=== PATIENT | female | born 1975 | race Caucasian/White ===

== ENCOUNTER → 2022-01-03 00:01 | Outpatient (BNVA) | payer MEDICAID, SELFPAY | PROVIDERS: PCP Nurse Practitioner Family; Visit Provider Internal Medicine | DX: Z20.822 Contact with and (suspected) exposure to COVID-19 (principal) | CPT/HCPCS: 87635 ==

== ENCOUNTER 2022-01-07 06:12 | Day surgery (SDC) | payer MEDICAID, SELFPAY ==
[2022-01-02 14:32] VITALS: BMI 41.0
[2022-01-07 06:58] VITALS: BP 142/83; PULSE 60; RESP 18; TEMP 36.5; O2SAT 98
--- NOTE | 2022-01-07 07:03 | ANES.PREANE2 ---
Pre-Anesthetic Assessment Height/Weight: Height 1.73 m Weight 122.47 kg Temp Pulse Resp BP Pulse Ox 97.7 F 60 18 142/83 98 01/07/22 06:58 01/07/22 06:58 01/07/22 06:58 01/07/22 06:58 01/07/22 06:58 Preop Diagnosis: Heartburn and screening Operation Date: 01/07/22 07:45 Proposed Procedures p EGD [id number]/z12.11(Not Applicable) - Bart Loomis MD s Colonoscopy(Not Applicable) - Bart Loomis MD Was Beta Kristian taken within 24 hours: N/A Was Clonidine taken within 24 hours: N/A Last intake: Intake Last Liquid Date 01/06/22 Last Liquid Time 19:00 Last Solid Date 01/05/22 Last Solid Time 18:00 Social No alcohol and No tobacco Exam alert and oriented x 3 Airway Submandibular: within normal limits Cervical ROM: within normal limits Mallampati: Class II Dentition: false History/ROS No significant history except as noted Pulmonary Asthma (no epipsodes in >1yr) CV/HEM None reported None reported Hepatic None reported GI Gastroesophageal Reflux Disease Metabolic Morbid Obesity Musc/sk None reported Neuropsych None reported Anesthetic Plan ASA status: 3 Anesthesia: Anesthesia Evaluation and MAC Risk of > 500 ml blood loss (7ml/kg in children): No Medications/Allergies Home Medications Medication Instructions Recorded Confirmed Last Taken Type albuterol sulfate 90 mcg/actuation 2 puff INHALATION Q6H PRN 11/08/21 01/02/22 Unknown History aerosol inhaler (ProAir HFA) calcium carbonate 500 mg calcium 500 mg PO BID 11/08/21 01/02/22 01/06/22 History (1,250 mg) tablet (Calcium 500) cetirizine 10 mg capsule (Zyrtec) 10 mg PO DAILY PRN 11/08/21 01/02/22 01/06/22 History cholecalciferol (vitamin D3) 10 10 mcg PO DAILY 11/08/21 01/02/22 01/06/22 History mcg (400 unit) capsule ferrous sulfate 325 mg (65 mg 325 mg PO DAILY 11/08/21 01/02/22 01/06/22 History iron) tablet fluticasone propionate 50 1 spray INTRANASAL DAILY 11/08/21 01/02/2222 History mcg/actuation nasal spray,suspension (Flonase Allergy Relief) furosemide 20 mg tablet 20 mg PO DAILY 30 Days #30 tab 11/08/21 01/02/22 01/06/22 Rx magnesium oxide 400 mg PO BID 11/08/21 01/02/22 01/06/22 History meloxicam 15 mg tablet 15 mg PO DAILY 30 Days #30 tab 11/08/21 01/02/22 01/06/22 Rx omeprazole 20 mg capsule,delayed 20 mg PO DAILY 11/08/21 01/02/22 01/06/22 History release venlafaxine 37.5 mg tablet 37.5 mg PO BID tab 11/08/21 01/02/22 01/06/22 History zinc 50 mg tablet 50 mg PO BID 11/08/21 01/02/22 01/06/22 History meclizine 25 mg tablet 25 mg PO BID #60 tab 12/17/21 01/02/22 01/06/22 Rx lovastatin 40 mg tablet 40 mg PO DAILY #30 tab 01/03/22 01/07/22 01/06/22 Rx acetaminophen 500 mg tablet 500 mg PO Q6H PRN 01/07/22 01/07/22 01/03/22 History Allergies Allergy/AdvReac Type Severity Reaction Status Date / Time adhesive tape Allergy Intermediate rash Verified 01/02/22 14:21 PFSH Anesthesia Medical History Breast cancer screening by mammogram Colon cancer screening Edema Environmental and seasonal allergies Former smoker GERD (gastroesophageal reflux disease) History of HPV infection History of stomach ulcers Migraine with vertigo Osteoarthritis Vertigo Vitamin D deficiency Surgical History H/O hand surgery 1996 tendon repair 3rd finger right hand S/P section 3 1999, 2002, 2004 S/P wisdom tooth extraction 1992 All 4 wisdom teeth removed Social History Smoking and tobacco status: former smoker Female Reproductive History Date of last menstrual period: 01/02/22 Data Anesthesia Cardiac Studies: No Data to Display
[2022-01-07 07:10] LABS: OR HCG Qualitative Urine Negative (Negative)
[2022-01-07] MEDS: sodium chloride 0.9% 1,000 ML 30 ML IV (07:11)
--- NOTE | 2022-01-07 08:00 | P.HP_ITS ---
Same Day Surgery H&P Indication for Procedure/HPI DATE OF PROCEDURE: January 07, 2022 CHIEF COMPLAINT/INDICATIONFOR SURGICAL PROCEDURE: Frequent heartburn and screening PREOP DIAGNOSIS: Heartburn and screening PLANNED PROCEDURE: Operation Date: 01/07/22 07:45 Proposed Procedures p EGD [id number]/[id number]/z12.11(Not Applicable) - Bart Loomis MD s Colonoscopy(Not Applicable) - Bart Loomis MD Medications/Allergies* Home Medications Medication Instructions Recorded Confirmed Type albuterol sulfate 90 mcg/actuation 2 puff INHALATION Q6H PRN 11/08/21 01/02/22 History aerosol inhaler (ProAir HFA) calcium carbonate 500 mg calcium 500 mg PO BID 11/08/21 01/02/22 History (1,250 mg) tablet (Calcium 500) cetirizine 10 mg capsule (Zyrtec) 10 mg PO DAILY PRN 11/08/21 01/02/22 History cholecalciferol (vitamin D3) 10 10 mcg PO DAILY 11/08/21 01/02/22 History mcg (400 unit) capsule ferrous sulfate 325 mg (65 mg 325 mg PO DAILY 11/08/21 01/02/22 History iron) tablet fluticasone propionate 50 1 spray INTRANASAL DAILY 11/08/21 01/02/22 History mcg/actuation nasal spray,suspension (Flonase Allergy Relief) magnesium oxide 400 mg PO BID 11/08/21 01/02/22 History omeprazole 20 mg capsule,delayed 20 mg PO DAILY 11/08/21 01/02/22 History release venlafaxine 37.5 mg tablet 37.5 mg PO BID tab 11/08/21 01/02/22 History zinc 50 mg tablet 50 mg PO BID 11/08/21 01/02/22 History acetaminophen 500 mg tablet 500 mg PO Q6H PRN 01/07/22 01/07/22 History Allergies/Adverse Reactions Allergy/AdvReac Type Severity Reaction Status Date / Time adhesive tape Allergy Intermediate rash Verified 01/02/22 14:21 Current Medications: Generic Name Dose Route Start Last Admin Trade Name Freq PRN Reason Stop Dose Admin Sodium Chloride 1,000 mls @ 30 mls/hr 01/07/22 07:00 01/07/22 07:11 Sodium Chloride 0.9% IV 01/08/22 06:59 30 mls/hr .Q24H OPAL Administration Pertinent History/Comorbid Conditions* Medical History (Updated 12/03/21 @ 14:50 by Bart Loomis MD) Breast cancer screening by mammogram Colon cancer screening Edema Environmental and seasonal allergies Former smoker GERD (gastroesophageal reflux disease) History of HPV infection History of stomach ulcers Migraine with vertigo Osteoarthritis Vertigo Vitamin D deficiency Surgical History (Updated 11/08/21 @ 11:27 by TANIKA Snow) H/O hand surgery 1996 tendon repair 3rd finger right hand S/P section 3 1999, 2002, 2004 S/P wisdom tooth extraction 1992 All 4 wisdom teeth removed Social History Smoking and tobacco status: former smoker Pertinent Exam Findings alert, oriented x 3, clear to auscultation bilaterally, regular rate & rhythm, operative site marked and procedure specific exam findings Recommendations Surgery/Procedure today Coding Level of Care Code 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
[2022-01-07 08:44] VITALS: BP 122/86; PULSE 65; RESP 16; TEMP 36.2; O2SAT 97
[2022-01-07 08:55] VITALS: BP 155/89; PULSE 59; RESP 16; O2SAT 98
--- NOTE | 2022-01-07 11:53 | ANE.PACU2 ---
Inpatient post-anesthesia follow up: Airway intact: Yes Vital signs: Temperature 97.2 F Pulse Rate 59 Respiratory Rate 16 Blood Pressure 155/89 Pulse Oximetry 98 Oxygen Delivery Me thod Room Air Oxygen Flow Rate Fraction of Inspir ed Oxygen Hydration adequate: Yes Nausea and vomiting: No Pain level: 1 Mental status: Baseline
[2022-01-08 09:21] LABS: H. Pylori / CLO Test Negative
== END 2022-01-07 09:15 | disposition home or self-care (01) ==
PROVIDERS: Anesthesiology; PCP Nurse Practitioner Family; Visit Provider Internal Medicine
PROC: 0DJ08ZZ Inspection of Upper Intestinal Tract, Via Natural or Artificial Opening Endoscopic (ICD-10-PCS; CPT 43235; principal; 2022-01-07 07:45)
PROC: 0DJD8ZZ Inspection of Lower Intestinal Tract, Via Natural or Artificial Opening Endoscopic (ICD-10-PCS; CPT 45378; 2022-01-07 07:45)
DX: Z12.11 Encounter for screening for malignant neoplasm of colon (principal); K29.70 Gastritis, unspecified, without bleeding; Z87.891 Personal history of nicotine dependence; M19.90 Unspecified osteoarthritis, unspecified site; E66.01 Morbid (severe) obesity due to excess calories; Z68.41 Body mass index [BMI] 40.0-44.9, adult
CPT/HCPCS: 43239; 45378; 81025; 84703; 87077; J2704; J3490; J7030

== ENCOUNTER → 2022-02-21 09:27 | Outpatient (BNVA) | payer MEDICAID, SELFPAY | PROVIDERS: PCP Nurse Practitioner Family; Visit Provider Nurse Practitioner | DX: G43.109 Migraine with aura, not intractable, without status migrainosus (principal); M19.09 Primary osteoarthritis, other specified site; Z79.899 Other long term (current) drug therapy | CPT/HCPCS: 80053; 84443 ==

== ENCOUNTER 2022-04-04 09:44 | Outpatient (CLI) | payer MEDICAID, SELFPAY ==
--- NOTE | 2022-04-04 09:51 | MM_ITS ---
WS: [id number] SCREENING DIGITAL BREAST TOMOSYNTHESIS MAMMOGRAM WITH CAD HISTORY: SCREENING COMPARISON: None available. Bilateral CC and MLO with tomosynthesis views submitted. Synthetic mammography reviewed. Computer aid ed detection analyzed. Breast composition: There are scattered areas of fibroglandular density. No suspicious masses, microc alcifications or architectural distortion. MM/[place] [id number] IMPRESSION: BI-RADS: 1-Negative FOLLOW UP: 1 Year Follow-up
== END 2022-04-04 09:45 | disposition home or self-care (01) ==
LOC: RADSHAW 09:47
PROVIDERS: PCP Nurse Practitioner; Visit Provider Nurse Practitioner
DX: Z12.31 Encounter for screening mammogram for malignant neoplasm of breast (principal)
CPT/HCPCS: 77063; 77067

== ENCOUNTER → 2022-06-11 10:10 | Outpatient (BNVA) | payer MEDICAID, SELFPAY | PROVIDERS: PCP Nurse Practitioner; Referring Provider Nurse Practitioner; Visit Provider Orthopaedic Surgery | DX: M54.50 Low back pain, unspecified (principal); M43.8X6 Other specified deforming dorsopathies, lumbar region; M48.061 Spinal stenosis, lumbar region without neurogenic claudication | CPT/HCPCS: 72110; 99203; 99204 ==

== ENCOUNTER → 2022-06-19 09:03 | Outpatient (BNVA) | payer MEDICAID, SELFPAY | PROVIDERS: PCP Nurse Practitioner; Visit Provider Podiatrist Foot & Ankle Surgery | DX: M54.16 Radiculopathy, lumbar region (principal); B35.1 Tinea unguium; R60.0 Localized edema | CPT/HCPCS: 11721; 99203 ==

== ENCOUNTER → 2022-06-21 08:53 | Outpatient (BNVA) | payer MEDICAID, SELFPAY | PROVIDERS: PCP Nurse Practitioner; Visit Provider Nurse Practitioner | DX: Z79.899 Other long term (current) drug therapy (principal); L25.5 Unspecified contact dermatitis due to plants, except food | CPT/HCPCS: 80053; 80061; 83036 ==

== ENCOUNTER → 2022-06-24 10:53 | Outpatient (BNVA) | payer MEDICAID, SELFPAY | PROVIDERS: PCP Nurse Practitioner; Referring Provider Nurse Practitioner; Visit Provider Nurse Practitioner | DX: G43.909 Migraine, unspecified, not intractable, without status migrainosus (principal) | CPT/HCPCS: 99204 ==

== ENCOUNTER 2022-09-27 13:47 | Outpatient (CLI) | payer MEDICAID, SELFPAY ==
--- NOTE | 2022-09-27 14:30 | MR_ITS ---
WS: [id number] MRI LUMBAR SPINE NONCONTRAST TECHNIQUE: Sagittal T1, T2 and STIR imaging. Axial T1 and T2 imaging. CLINICAL INFORMATION: M54.16 - Radiculopathy, lumbar region COMPARISON: None. FINDINGS: Mild lumbar curve. No acute compression. Mild disc bulging worse L5-S1 with a shallow central protrus ion. Slight contact of the traversing LEFT greater than RIGHT S1 nerve roots. L1-L2: Normal. L2-L3: No significant disc bulging. Mild facet arthropathy. Spinal canal and foramen are patent. L3-L4: Mild annular bulging with slight effacement of the ventral thecal sac. Mild facet arthropathy. Tiny RIGHT foraminal protrusion with mild RIGHT foraminal narrowing. LEFT foramen is patent. Mild fa cet arthropathy. L4-L5: Mild annular bulging. Moderate facet arthropathy. Spinal canal and foramen are patent. L5-S1: Shallow central disc protrusion with slight contact of the LEFT greater than RIGHT S1 nerve ro ots. Moderate facet arthropathy. Spinal canal and foramen are patent. Visualized pelvic bony structures: Normal. Paravertebral soft tissues: Normal. MR/MR lumbar spine wo con* [id number] IMPRESSION: 1. Mild lumbar curve. No acute compression. No high-grade central canal stenos is. 2. Shallow central disc protrusion eccentric to the LEFT with slight impingeme nt traversing LEFT S1 nerve root. Recommend correlation LEFT S1 nerve root symp toms. 3. Tiny RIGHT foraminal protrusions L3-L4 and L4-L5 with slight encroachment o n the exiting RIGHT L3 and L4 nerve roots respectively. Tiny annular fissure at L3-L4. 4. Moderate facet arthropathy L3-L5.
== END 2022-09-27 13:48 | disposition home or self-care (01) ==
LOC: RAD 13:48
PROVIDERS: PCP Nurse Practitioner; Visit Provider Orthopaedic Surgery
DX: M54.16 Radiculopathy, lumbar region (principal); M51.26 Other intervertebral disc displacement, lumbar region; M47.816 Spondylosis without myelopathy or radiculopathy, lumbar region
CPT/HCPCS: 72148

== ENCOUNTER 2022-11-26 06:00 | Outpatient (RCR) | payer MEDICAID, SELFPAY | END 2022-12-03 23:59 | disposition home or self-care (01) | LOC: WPT 06:00 | PROVIDERS: PCP Nurse Practitioner; Visit Provider Anesthesiology Pain Medicine | DX: M54.50 Low back pain, unspecified (principal); G89.29 Other chronic pain | CPT/HCPCS: 97110; 97161 ==

== ENCOUNTER 2022-12-04 06:00 | Outpatient (RCR) | payer MEDICAID, SELFPAY | END 2022-12-31 23:59 | disposition home or self-care (01) | LOC: WPT 06:00 | PROVIDERS: PCP Nurse Practitioner; Visit Provider Anesthesiology Pain Medicine | DX: M54.50 Low back pain, unspecified (principal); G89.29 Other chronic pain | CPT/HCPCS: 97110; 97112; 97530 ==

== ENCOUNTER → 2023-02-17 09:27 | Outpatient (BNVA) | payer MEDICAID, SELFPAY | PROVIDERS: PCP Nurse Practitioner; Visit Provider Anesthesiology Pain Medicine | DX: M25.512 Pain in left shoulder (principal) | CPT/HCPCS: 73030 ==

== ENCOUNTER 2023-04-11 11:03 | Outpatient (CLI) | payer MEDICAID, SELFPAY ==
--- NOTE | 2023-04-11 11:13 | MM_ITS ---
WS: [id number] Bilateral screening 3D tomosynthesis digital mammogram, 04/11/2023 Clinical Data: SCREENING Comparison: 04/04/2022 Findings: The breast parenchymal pattern shows fibroglandular tissue. No spiculated masses or clustered calcifi cations are seen. There are no secondary signs of carcinoma. MM/[place] [id number] Impression: 1. Negative bilateral mammogram unchanged. 2. Recommend annual screening mammograms. BIRADS: 1-Negative FOLLOW UP: 1 Year Follow-up The CAD installment account checker was used.
== END 2023-04-11 11:04 | disposition home or self-care (01) ==
LOC: RAD 11:05
PROVIDERS: PCP Nurse Practitioner; Visit Provider Nurse Practitioner
DX: Z12.31 Encounter for screening mammogram for malignant neoplasm of breast (principal)
CPT/HCPCS: 77063; 77067

== ENCOUNTER → 2023-05-01 11:59 | Outpatient (BNVA) | payer MEDICAID, SELFPAY | PROVIDERS: PCP Nurse Practitioner; Visit Provider Nurse Practitioner | DX: Z12.4 Encounter for screening for malignant neoplasm of cervix (principal) | CPT/HCPCS: 88175 ==

== ENCOUNTER → 2023-06-18 11:17 | Outpatient (BNVA) | payer MEDICAID, SELFPAY | PROVIDERS: Visit Provider Anesthesiology Pain Medicine | DX: M17.11 Unilateral primary osteoarthritis, right knee (principal) | CPT/HCPCS: 73562 ==

== ENCOUNTER → 2023-10-02 09:16 | Outpatient (BNVA) | payer OTHER, MEDICAID, SELFPAY | PROVIDERS: Visit Provider Nurse Practitioner Family | DX: E55.9 Vitamin D deficiency, unspecified (principal); Z79.899 Other long term (current) drug therapy; Z13.6 Encounter for screening for cardiovascular disorders | CPT/HCPCS: 80053; 80061; 81003; 82306; 83036; 84443; 85025 ==

== ENCOUNTER → 2023-10-15 10:18 | Outpatient (BNVA) | payer OTHER, MEDICAID, SELFPAY | PROVIDERS: PCP Nurse Practitioner Family; Visit Provider Nurse Practitioner Family | DX: I10 Essential (primary) hypertension (principal); R06.00 Dyspnea, unspecified | CPT/HCPCS: 93005 ==

== ENCOUNTER → 2024-03-11 09:30 | Outpatient (BNVA) | payer OTHER, SELFPAY | PROVIDERS: PCP Nurse Practitioner Family; Visit Provider Nurse Practitioner Family | DX: N95.1 Menopausal and female climacteric states (principal); Z12.31 Encounter for screening mammogram for malignant neoplasm of breast; I10 Essential (primary) hypertension | CPT/HCPCS: 82670; 84403 ==

== ENCOUNTER 2024-04-28 11:48 | Outpatient (CLI) | payer OTHER, SELFPAY ==
--- NOTE | 2024-04-28 12:00 | MM_ITS ---
WS: [id number] VIEWS: MLO and CC views both breasts. 3D digital tomosynthesis is also included in this exam. Comparison made with prior exam of 04/04/2022 and 04/11/2023.. Findings: New 8 mm nodule identified in the anterior lateral RIGHT breast this is probably about 9:00. No archi tectural distortion or suspicious calcification noted. No new findings in the LEFT breast. Compressio n spot images with tomography and regional ultrasound of the RIGHT breast is suggested for further wo rk-up. The breasts are heterogeneously dense which may obscure small masses. MM/[place] [id number] Impression: BI-RADS: 0-Incomplete: Need additional imaging evaluation FOLLOW-UP: See Report This mammogram was also analyzed by the Computer Aided Detection System R2 Imag e Bean Snapper.
== END 2024-04-28 11:49 | disposition home or self-care (01) ==
PROVIDERS: PCP Nurse Practitioner Family; Visit Provider Nurse Practitioner Family
DX: Z12.31 Encounter for screening mammogram for malignant neoplasm of breast (principal)
CPT/HCPCS: 77063; 77067

== ENCOUNTER → 2024-05-26 11:45 | Outpatient (BNVA) | payer OTHER, SELFPAY | PROVIDERS: PCP Nurse Practitioner Family; Visit Provider Nurse Practitioner Family | DX: S99.921A Unspecified injury of right foot, initial encounter (principal); X58.XXXA Exposure to other specified factors, initial encounter; M79.89 Other specified soft tissue disorders | CPT/HCPCS: 73630 ==

== ENCOUNTER 2024-06-10 06:00 | Outpatient (RCR) | payer OTHER, SELFPAY | END 2024-07-03 23:59 | disposition home or self-care (01) | LOC: WPT 06:00 | PROVIDERS: Visit Provider Nurse Practitioner Family | DX: M25.511 Pain in right shoulder (principal); M25.512 Pain in left shoulder; M54.9 Dorsalgia, unspecified; G89.29 Other chronic pain | CPT/HCPCS: 97161 ==

== ENCOUNTER → 2024-07-15 15:03 | Outpatient (BNVA) | payer OTHER, SELFPAY | PROVIDERS: Visit Provider Obstetrics & Gynecology | DX: N93.9 Abnormal uterine and vaginal bleeding, unspecified (principal) | CPT/HCPCS: 83001 ==

== ENCOUNTER → 2024-07-22 10:08 | Outpatient (BNVA) | payer OTHER, SELFPAY | PROVIDERS: Visit Provider Obstetrics & Gynecology | DX: Z30.9 Encounter for contraceptive management, unspecified (principal) | CPT/HCPCS: 81025 ==

== ENCOUNTER → 2024-09-10 09:50 | Outpatient (BNVA) | payer OTHER, MEDICAID, SELFPAY | PROVIDERS: PCP Nurse Practitioner Family; Referring Provider Anesthesiology Pain Medicine; Visit Provider Nurse Practitioner | DX: M17.0 Bilateral primary osteoarthritis of knee (principal) | CPT/HCPCS: 73560; 73565 ==

== ENCOUNTER 2024-09-10 11:46 | Outpatient (CLI) | payer OTHER, MEDICAID, SELFPAY | END 2024-09-10 11:47 | disposition home or self-care (01) | LOC: SPT 11:46 | PROVIDERS: PCP Nurse Practitioner Family; Visit Provider Nurse Practitioner | DX: Z46.89 Encounter for fitting and adjustment of other specified devices (principal); M25.561 Pain in right knee; M25.562 Pain in left knee | CPT/HCPCS: J3301; L1852 ==

== ENCOUNTER → 2024-12-17 09:51 | Outpatient (BNVA) | payer MEDICAID, SELFPAY | PROVIDERS: PCP Nurse Practitioner Family; Visit Provider Nurse Practitioner | DX: M17.2 Bilateral post-traumatic osteoarthritis of knee (principal) | CPT/HCPCS: 20610; 99213; J1100; J2795; J3301 ==

== ENCOUNTER → 2025-02-07 10:53 | Outpatient (BNVA) | payer OTHER, SELFPAY | PROVIDERS: PCP Nurse Practitioner Family; Visit Provider Nurse Practitioner Family | DX: I10 Essential (primary) hypertension (principal); E55.9 Vitamin D deficiency, unspecified; Z13.6 Encounter for screening for cardiovascular disorders | CPT/HCPCS: 80053; 80061; 81003; 82306; 83036; 84443; 85025 ==

== ENCOUNTER → 2025-03-18 12:12 | Outpatient (BNVA) | payer OTHER, MEDICAID, SELFPAY | PROVIDERS: PCP Nurse Practitioner Family; Visit Provider Nurse Practitioner | DX: M17.2 Bilateral post-traumatic osteoarthritis of knee (principal) | CPT/HCPCS: 36415; 80053; 81001; 85025; 87086 ==

== ENCOUNTER 2025-04-03 05:00 | Outpatient (RCR) | payer OTHER, MEDICAID, SELFPAY | END 2025-05-02 23:55 | disposition home or self-care (01) | LOC: WPT 05:00 | PROVIDERS: PCP Nurse Practitioner Family; Visit Provider Specialist | DX: M17.12 Unilateral primary osteoarthritis, left knee (principal) | CPT/HCPCS: 97110; 97112; 97530 ==

== ENCOUNTER 2025-04-08 12:06 | Outpatient (CLI) | payer OTHER, MEDICAID, SELFPAY ==
--- NOTE | 2025-04-08 12:30 | CT_ITS ---
WS: [id number] CT LEFT KNEE, NONCONTRAST [facility] TECHNIQUE: Noncontrast CT of the LEFT knee to include the LEFT hip and ankle. CLINICAL INFORMATION: M17.12 - Unilateral primary osteoarthritis, left knee DLP: 853.[address] scans at [facility] use at least one of these dose optimization techniques: automated exposure control; mA and/or kV adjustment per patient size (includes targeted exams where dose is matched to clinical indication); or iterative reconstruction. FINDINGS: Advanced joint arthritis LEFT knee with gflo-ao-mmte articulation in the medial joint compartment. Hypertrophic changes along the joint line. Hypertrophic patella. Small suprapatellar effusion. Popliteal cyst measuring 2.[address]/CT knee LT [facility] [id number] IMPRESSION: Images obtained for preoperative purposes.
== END 2025-04-08 12:07 | disposition home or self-care (01) ==
PROVIDERS: PCP Nurse Practitioner Family; Visit Provider Nurse Practitioner
DX: M17.12 Unilateral primary osteoarthritis, left knee (principal)
CPT/HCPCS: 73700

== ENCOUNTER 2025-04-14 10:28 | Observation (INO) | payer OTHER, MEDICAID, SELFPAY ==
[2025-04-14] VITALS (23 sets, daily range): BP systolic 110–156; BP diastolic 67–94; PULSE 56–74; RESP 16–21; TEMP 36.2–36.8; O2SAT 92–99; BMI 39.4
[2025-04-14] MEDS: CELEcoxib 200 mg Capsule 400 MG PO (06:23)
[2025-04-14] MEDS: sodium chloride 0.9% 1,000 ML 30 ML IV (06:24)
[2025-04-14] MEDS: gabapentin 300 mg Capsule PO (06:24)
[2025-04-14] MEDS: acetaminophen 1,000 MG/100 ML PIGGYBACK 400 MG IV ×3 (06:25→23:37)
--- NOTE | 2025-04-14 06:42 | ANES.PREANE2 ---
Pre-Anesthetic Assessment Height/Weight: Height 1.75 m Weight 121.109 kg Temp Pulse Resp BP Pulse Ox O2 Del Method 97.2 F L 64 18 136/81 97 Room Air 04/14/25 06:00 04/14/25 06:00 04/14/25 06:00 04/14/25 06:00 04/14/25 06:00 04/14/25 06:00 Operation Date: 04/14/25 07:00 Proposed Procedures p LEFT Eduard Robot Total Knee Arthroplasty(Left) - Sydney Piña MD Familial anesthetic complications: None Was Beta Kristian taken within 24 hours: Yes Was Clonidine taken within 24 hours: N/A Last intake: Intake Last Liquid Date 04/13/25 Last Liquid Time 23:30 Last Solid Date 04/13/25 Last Solid Time 19:00 Social No alcohol and No tobacco Exam alert, oriented x 3, clear to auscultation bilaterally and regular rate & rhythm Airway Mallampati: Class III Dentition: other (none) Pulmonary Asthma CV/HEM Hypertension and Peripheral Vascular Disease GI Gastroesophageal Reflux Disease (well controlled, states no issues laying flat) and Peptic Ulcer Disease Metabolic Hyperlipidemia and Morbid Obesity Anesthetic Plan ASA status: 3 Anesthesia: Regional (specify below) (spinal) Risk of > 500 ml blood loss (7ml/kg in children): No Medications/Allergies Home Medications ?Medication ?Instructions ?Recorded ?Confirmed ?Last Taken ?Type albuterol sulfate 90 mcg/actuation 2 puff inhalation Q6H PRN 11/08/21 04/13/25 Unknown History aerosol inhaler (ProAir HFA) Respiratory Distress calcium carbonate (Calcium 500) 500 mg PO BID 11/08/21 04/13/25 04/12/25 History cetirizine 10 mg capsule (Zyrtec) 10 mg PO DAILY PRN Allergic 11/08/21 04/13/25 04/12/25 History Symptoms cholecalciferol (vitamin D3) 10 10 mcg PO DAILY 11/08/21 04/13/25 04/12/25 History mcg (400 unit) capsule magnesium oxide 400 mg PO BID 11/08/21 04/13/25 04/12/25 History zinc 50 mg tablet 50 mg PO BID 11/08/21 04/13/25 04/12/25 History acetaminophen 500 mg tablet 500 mg PO Q6H PRN Headache 03/05/2404/13/25 04/12/25 History venlafaxine 150 mg 150 mg PO DAILY #90 caps 07/09/24 04/13/25 04/13/25 Rx capsule,extended release 24 hr (Effexor XR) medial bilateral rehabilitation program manager braces #1 ea 09/10/24 03/18/25 Unknown Rx mv-mn-folic 200 mcg-vit K 15 1 cap PO DAILY 04/06/25 04/13/25 04/13/25 History mcg-lutein 5 mg-zeaxanthin 1 mg capsule (PreserVision AREDS 2 Plus Multivit) amlodipine 5 mg tablet 5 mg PO DAILY 04/13/25 04/13/25 04/13/25 History cyclobenzaprine 10 mg tablet 10 mg PO DAILY PRN muscle spasms 04/13/25 04/13/25 04/12/25 History fluticasone propionate 50 1 spray intranasal DAILY 04/13/25 04/13/25 04/13/25 History mcg/actuation nasal spray,suspension lovastatin 40 mg tablet 40 mg PO DAILY 04/13/25 04/13/25 04/13/25 History meloxicam 15 mg tablet 15 mg PO DAILY 04/13/25 04/13/25 03/30/25 History pantoprazole 40 mg tablet,delayed 40 mg PO DAILY 04/13/25 04/13/25 04/13/25 History release propranolol 20 mg tablet 20 mg PO BID 04/13/25 04/13/25 04/13/25 History topiramate 100 mg tablet (Topamax) 100 mg PO BEDTIME 04/13/25 04/13/25 04/13/25 History Allergies Allergy/AdvReac Type Severity Reaction Status Date / Time adhesive tape Allergy Intermediate rash Verified 04/06/25 09:10 lisinopril Allergy ALGY-Difficulty Verified 04/06/25 09:10 Breathing Current Medications Generic Name Dose Route Start Last Admin Trade Name Freq PRN Reason Stop Dose Admin Sodium Chloride 1,000 mls @ 30 mls/hr 04/14/25 05:45 04/14/25 06:24 Sodium Chloride 0.9% IV 04/15/25 05:44 30 mls/hr .Q24H OPAL Administration PFSH Anesthesia Medical History BMI 39.0-39.9,adult Osteoarthritis of right knee Osteoarthritis of left knee Muscle spasm IUD (intrauterine device) in place Chronic back pain Chronic pain of both shoulders Trauma of toe of right foot Abnormal mammogram Perimenopausal symptom Essential hypertension Family history of cardiovascular disease Arthritis of both knees Anxiety and depression Encounter for screening for cardiovascular disorders Insect bite Rhus dermatitis Environmental and seasonal allergies Breast cancer screening by mammogram Colon cancer screening Osteoarthritis Migraine with vertigo Vitamin D deficiency Vertigo GERD (gastroesophageal reflux disease) History of stomach ulcers Edema Former smoker History of HPV infection Surgical History S/P wisdom tooth extraction 1992 All 4 wisdom teeth removed H/O hand surgery 1996 tendon repair 3rd finger right hand S/P section 3 1999, 2002, 2004 Family History Grandfather No problems noted. Grandmother Breast cancer Ovarian cancer Uterine cancer Mother Diabetes Hyperlipidemia Hypertension Brother Diabetes Thyroid disease Sister Diabetes Stroke Father Heart disease Hyperlipidemia Hypertension Thyroid disease Denies family history of Colon cancer Prostate cancer Social History Smoking and tobacco/nicotine status: former use of tobacco/nicotine Current occupation: Works at [employer]
[2025-04-14 06:47] LABS: OR HCG Qualitative Urine Negative (Negative)
--- NOTE | 2025-04-14 06:58 | P.HPUD_ITS ---
Surgery/Procedure H&P Update DATE OF PROCEDURE: April 14, 2025 DATE H&P PERFORMED: 04/06/25 H&P UPDATE INFORMATION: I have reviewed H&P completed within last 30 days, I have examined patient prior to procedure, No changes to prior documentation, H&P is in [facility] EMR on date indicated and Risks and benefits of the procedure reviewed PREOP DIAGNOSIS: Severe osteoarthritis left knee PLANNED PROCEDURE: Operation Date: 04/14/25 07:00 Proposed Procedures p LEFT Eduard Robot Total Knee Arthroplasty(Left) - Sydney Piña MD Related Problem List Diagnoses (1) Osteoarthritis of left knee: Qualifiers: Osteoarthritis type: primary Qualified Code(s): M17.12 - Unilateral primary osteoarthritis, left knee
[2025-04-14] MEDS: ceFAZolin 3,000 MG in sodium chloride 0.9% (plus) 100 ML 200 MG IV ×3 (07:00→23:56)
[2025-04-14] MEDS: tranexamic acid 1,000 mg/10mL SDV 1000 MG IV (07:41)
[2025-04-14] MEDS: BUPivacaine liposome 13.3 mg/mL SDV 20 mL 266 MG INFILTRATI (08:02)
[2025-04-14] MEDS: BUPivacaine 0.5% INJ 30 mL 20 ML INJECTION (08:02)
[2025-04-14] MEDS: sodium chloride 0.9% 50 mL Bag XX (08:03)
[2025-04-14] MEDS: ceFAZolin 1,000 mg SDV 2000 MG IRRIGATION (08:03)
[2025-04-14] MEDS: VANCOMYCIN ADD-Vantage 1,000 MG VIAL 1000 MG XX (08:04)
--- NOTE | 2025-04-14 10:15 | P.OP_ITS ---
Operative Report Date of procedure: April 14, 2025 Pre-op diagnosis: Primary osteoarthritis with varus deformity and flexion contracture left knee Post-op diagnosis: Primary osteoarthritis with varus deformity and flexion contracture left knee Post-op findings: Severe degenerative osteoarthritis with large osteophytes and significant varus deformity of approximately 17 degrees. Flexion contracture of approximately 9 degrees. Procedure done: Left total knee arthroplasty with Eduard guidance Implants: The Solon total knee system with a size 3 triathlon beaded cruciate retaining femur left, a triathlon titanium tibial component size 3 beaded, a triathlon X3 tibial bearing CS insert size 3 X 11 mm and a beaded triathlon titanium asymmetric patella size 35 x 10 mm Specimens removed/disposition: Bone, disposed of Pathology: None Surgeon: Sydney Pñia MD Senior Graphic Designer: Loan Finch, nurse practitioner, whose services were required for positioning, retraction, completion of the surgery, and closure. Anesthesia: Spinal (With MAC, ASA 3) Estimated blood loss (mL): 170 Tourniquet time (min): 0 (Not utilized) IV fluids (mL): 1,500 Urine output (mL): 250 Complications: None Findings: As noted above Condition: stable Disposition: PACU (Then discharged to floor for postoperative rehabilitation and pain management under observation status) Brief History: This 49-year-old woman presented with complaints of bilateral knee pain. X-rays were significant for severe degenerative osteoarthritis bilaterally. The patient was wearing collaborative physician knee braces bilaterally with some relief, but she had significant limitations in her activities of daily living. Injections were only lasting about 2-1/2 months. The patient wished to proceed with left total knee arthroplasty. Risks and complications were discussed with her. Consents were signed and questions were answered. Procedure: The patient was brought to the operating theater, and after undergoing general anesthesia, intubated, ASA 3, the left lower extremity was prepped with Dura- Prep and draped in usual fashion following placement of a tourniquet high on the leg. The leg was then draped free.? Tourniquet was not elevated during the case.? A surgical pause was performed, and at the time of the surgical pause, we confirmed the site and side of surgery. Additionally, we confirmed the appropriate and timely administration of preoperative antibiotics, Ancef 3 g and Transexemic acid 1 g. An additional gram will be given postoperatively on the floor. The availability of equipment was confirmed, and the patient's identity was verbalized as well. Following the surgical pause, an incision was made centering over the patella continuing proximally and distally as necessary to allow access to the knee joint. Dissection continued through skin and soft tissues using a scalpel. Hemostasis was obtained using electrocautery. The skin incision was followed by a median parapatellar arthrotomy. The leg was extended and the patella was able to be displaced laterally.? Appropriate arrays and markers were placed in appropriate position for use of the Eduard.? Preoperative planning had been accomplished and was discussed in detail with the [facility] major account representative.? Intraoperative mapping of the femur and tibia was accomplished after the arrays were placed.? Internal markers were also placed.? Once we had accomplished the Eduard mapping, we began the appropriate resections for placement of the prosthesis.? The plan was for a posterior cruciate retaining cementless left total knee arthroplasty. Once appropriate mapping had been accomplished, retraction was established using manual retraction by surgical technicians and also the Eduard leg positioner and retractors.? The knee was evaluated.? There was significant osteoarthritic change without significant varus or valgus deformity.? Appropriate bone resection was accomplished using the Eduard.? The femur was sized to a size 3.? Following femoral cuts, attention was directed to the tibia.? Osteophytes were removed prior to this portion of the procedure.? We had performed a medial release at the beginning of the procedure to allow for placement of the array.? Proximal tibia was evaluated, and it was felt that appropriate size for the tibia was a size 3.? Tray was noted to fit nicely with good coverage.? Rim fit was accomplished with the size 3. A trial reduction was accomplished after osteophytes had been removed as well as the medial and lateral menisci.? We had removed the anterior cruciate ligament remnants at the beginning of the case and preserved the posterior cruciate ligament.? Trial reduction was accomplished with a size 3 femoral cruciate retaining component and a size 3 TriTanium tibial tray.? Trial was accomplished with a 9 mm insert, and decision was made following this to increase the component size to 11 mm thickness.? This gave better stability and full range of motion. Trial components were removed after the femur had been drilled.? Prior to removal of the tibial tray, which had been pinned in position with appropriate rotation as determined by the Eduard plan, we broached the tibia.? Subsequently, the 4 drill holes were made for the prosthetic component.? All trial components were removed, and the wound was irrigated.? Plans were made for insertion of the prosthetic components.? Prior to this, the patella was manually prepared.? After resection of the articular surface with the jigging system, it was measured and measured a 32 mm patella.? We resected approximately 9 mm of patella.? Patellar height was restored with the patellar component. Once again, the wound was irrigated.? The Tritanium tibia was impacted into position.? The beaded femur was then impacted into position in a cementless fashion. The CS tibial insert was placed prior to placement of the femoral component. The patella was pressed into position with a patellar clamp.? Exparel was injected about the components deep and superficially.? The knee was then copiously irrigated with betadine and saline and suctioned dry. Copious irrigation was accomplished following this. Attention was then directed to closure. Closure was accomplished with 0 Vicryl in the fascial tissues.? The suture line of 0 Vicryl was supplemented with strata fix, #1, with a running stitch from proximal to distal and a second running stitch from distal to proximal.? This was followed by Surgiflo and vancomycin powder.? Following this, a 2-0 Monocryl strata fix was used in the subcutaneous tissues, and the skin was closed with 3-0 Strata fix.? Care was taken to assure an excellent subcutaneous as well as skin closure.? A sterile dressing was then placed consisting of Dermabond Prineo, OpSite, ABD, sterile soft roll, and an [place]om[place] wrap including over the foot. The patient was returned the Recovery Room in a satisfactory condition. X-rays were obtained and reviewed there.? The patient will be discharged to the floor for postoperative rehabilitation and pain management. Related Problem List Diagnoses (1) Osteoarthritis of left knee:
--- NOTE | 2025-04-14 10:20 | XR_ITS ---
WS: [id number] Left knee, AP and lateral views, 04/14/2025 Clinical Data: Status post left total knee arthroplasty Comparison: Both knees, 09/10/2024 Findings: There is a knee arthroplasty with components in good position. Postoperative air is present in the knee joint. XR/XR knee LT 1-2V 82907 Impression: Left knee arthroplasty.
[2025-04-14] MEDS: fentaNYL 50 mcg/mL INJ 2mL IVP (10:54)
--- NOTE | 2025-04-14 11:10 | ANE.PACU2 ---
Inpatient post-anesthesia follow up: Airway intact: Yes Vital signs: Temperature 97.7 F Pulse Rate 62 Respiratory Rate 16 Blood Pressure 142/89 Pulse Oximetry 96 Oxygen Delivery Me thod Room Air Oxygen Flow Rate 6 Fraction of Inspir ed Oxygen Hydration adequate: Yes Nausea and vomiting: No Pain level: 1 Mental status: Baseline
[2025-04-14] MEDS: CELEcoxib 200 mg Capsule PO ×2 (13:14→23:40)
[2025-04-14] MEDS: tranexamic acid 1,000 MG/100 ML PREMIX 600 MG IV (15:23)
[2025-04-14] MEDS: oxyCODONE 5 mg IR Tab/Cap PO ×3 (15:23→23:40)
[2025-04-14] MEDS: calcium carbonate 500 mg Chew Tablet 1000 MG PO (17:25)
[2025-04-14] MEDS: propranolol 20 mg Tablet PO (17:25)
[2025-04-14] MEDS: iron polysaccharide complex 150 mg Capsule PO (17:26)
[2025-04-14] MEDS: chlorhexidine gluconate 0.12% Btl 473 mL 30 ML MUCOUS MEM (20:46)
[2025-04-14] MEDS: topiramate 100 mg Tablet PO (20:46)
[2025-04-14] MEDS: NON-FORMULARY MEDICATION 1 EACH PO (20:46)
[2025-04-15] VITALS: BP 144/70; PULSE 78; RESP 16; TEMP 36.7; O2SAT 97
[2025-04-15 04:00] VITALS: BP 153/83; PULSE 77; RESP 16; TEMP 37; O2SAT 94
[2025-04-15 05:00] LABS: Basophils % 0.2 %; Eosinophils % 0.2 %; Hematocrit 38.2 % (36-47); Lymphocytes # 1.9 10^3/uL (0.8-4.8); Lymphocytes % 15.9 %; Mean Corpuscular HGB Conc 31.2 g/dL (30-55); Mean Corpuscular Hemoglobin 26.4 pg (27-33); Mean Corpuscular Volume 84.7 fl (85-98); Mean Platelet Volume 11.4 fL (7.4-10.4); Monocytes # 1.1 10^3/uL (0.2-0.9); Monocytes % 8.9 %; Neutrophils # 9.09 10^3/uL (1.8-7.7); Neutrophils % 74.3 %; Nucleated Red Blood Cells % 0 %; Platelet Count 205 10^3/cmm (157-399); Red Blood Count 4.51 10^6/uL (3.85-5.65); Red Cell Distribution Width 15.5 % (12.1-15.1); White Blood Count 12.22 10^3/uL (3.29-11.43)
[2025-04-15 05:27] LABS: Anion Gap 16.5 (5-19); Blood Urea Nitrogen 16 mg/dL (6-20); Calcium 8.7 mg/dL (8.5-10.5); Carbon Dioxide 21 mmol/L (22-29); Chloride 101 mmol/L (98-107); Creatinine Clr Calc Pharmacy 133.8198; Glomerular Filtration Rate 88.6 mL/min (90-130); Glucose 140 mg/dL (65-115); Osmolality Calculated 283 mOsm/kg (285-295); Potassium 3.5 mmol/L (3.5-5.1); Sodium 135 mmol/L (136-145)
[2025-04-15 06:01] VITALS: RESP 20
[2025-04-15] MEDS: acetaminophen 1,000 MG/100 ML PIGGYBACK 400 MG IV (06:01)
[2025-04-15] MEDS: oxyCODONE 5 mg IR Tab/Cap PO (06:01)
[2025-04-15 07:47] VITALS: BP 125/88; PULSE 86; RESP 18; TEMP 36.9; O2SAT 96
[2025-04-15] MEDS: ATORVASTATIN 10 MG TABLET 20 MG PO (08:46)
[2025-04-15] MEDS: iron polysaccharide complex 150 mg Capsule PO (08:46)
[2025-04-15] MEDS: venlafaxine ER (24HR) 150 mg Capsule PO (08:46)
[2025-04-15] MEDS: ceFAZolin 3,000 MG in sodium chloride 0.9% (plus) 100 ML 200 MG IV (08:46)
[2025-04-15] MEDS: calcium carbonate 500 mg Chew Tablet 1000 MG PO (08:47)
[2025-04-15] MEDS: amlodipine 5 mg Tablet PO (08:47)
[2025-04-15] MEDS: propranolol 20 mg Tablet PO (08:47)
[2025-04-15] MEDS: aspirin 325 mg EC Tablet PO (08:47)
[2025-04-15] MEDS: pantoprazole DR 40 mg Tablet PO (08:47)
[2025-04-15] MEDS: multivitamin therapeutic Tablet 1 TAB PO (08:47)
[2025-04-15] MEDS: cholecalciferol (vitamin D3) 1,000 unit Tablet 1000 UNIT PO (08:47)
[2025-04-15] MEDS: NON-FORMULARY MEDICATION 1 EACH PO (09:33)
[2025-04-15] MEDS: acetaminophen 500 mg Tablet 1000 MG PO (11:22)
[2025-04-15] MEDS: CELEcoxib 200 mg Capsule PO (11:22)
[2025-04-15 11:59] VITALS: BP 136/80; PULSE 74; RESP 17; TEMP 37.2; O2SAT 96
--- NOTE | 2025-04-15 12:22 | PC.OT ---
Pt declines OT services at this time; will attempt again at a later time.
--- NOTE | 2025-04-15 14:41 | P.DS_ITS ---
Discharge Providers Date of Admission: 04/14/25 10:28 Date of Discharge: April 15, 2025 Attending Provider at Admission: Sydney Piña MD Attending Provider at Discharge: Sydney Piña MD Primary Care Provider: TANIKA Og Diagnoses at Discharge Discharge Diagnosis (1) Osteoarthritis of left knee: Status: Chronic Qualifiers: Osteoarthritis type: primary Qualified Code(s): M17.12 - Unilateral primary osteoarthritis, left knee (2) Status post total left knee replacement not using cement: Status: Acute Permanent problem details: Date of procedure: April 14, 2025 Diagnosis: Primary osteoarthritis with varus deformity and flexion contracture left knee Procedure done: Left total knee arthroplasty with Eduard guidance Implants: [employer] total knee system with a size 3 triathlon beaded cruciate retaining femur left, a triathlon titanium tibial component size 3 beaded, a triathlon X3 tibial bearing CS insert size 3 X 11 mm and a beaded triathlon titanium asymmetric patella size 35 x 10 mm Reason for Visit Reason for Visit: M17.12 Brief History: This 49-year-old woman presented with complaints of bilateral knee pain. X-rays were significant for severe degenerative osteoarthritis bilaterally. The patient was wearing broadcast technician knee braces bilaterally with some relief, but she had significant limitations in her activities of daily living. Injections were only lasting about 2-1/2 months. The patient wished to proceed with left total knee arthroplasty. Risks and complications were discussed with her. Consents were signed and questions were answered. Hospital Course Hospital Course This 49-year-old woman was admitted under observation status following uneventful left total knee arthroplasty. Patient had physical therapy the day following her surgery, and she was found to be independent in safe for discharge to home. There was no evidence of DVT. The patient will be set up with home physical therapy. Risks and complications of going home were discussed with her. Patient agreed and plan to be discharged to home. Physical Exam Const: COMMON NORMALS: no acute distress, average body habitus, patient oriented x3 and alert GENERAL APPEARANCE: cooperative and comfortable ORIENTATION/CONSCIOUSNESS: Yes awake HENMT: COMMON NORMALS: normocephalic and atraumatic HEAD & SCALP: normocephalic and atraumatic Eye: GENERAL EYE: appearance normal, both eyes and all related structures Chest: COMMONS NORMALS: normal inspection of the chest Resp: COMMON NORMALS: normal respiratory effort EFFORT & INSPECTION: Yes able to speak in complete sentences and Yes symmetric chest movement Extremity: LEFT LOWER EXTREMITY: Yes knee joint (Unable to straight leg raise, but comfortable ambulating) Left knee: Yes inspection (No significant swelling), Yes ROM (Not evaluated) and Yes neurovascular exam (Intact distally with no evidence of DVT) Neuro: COMMON NORMALS: patient oriented x3 SENSORIUM/ORIENTATION: Yes alert Psych: COMMON NORMALS: mental status grossly normal APPEARANCE: Yes grossly normal ATTITUDE: Yes calm and Yes engaged ATTENTION/CONCENTRATION: Yes attention grossly intact Skin: COMMON NORMALS: no rashes or lesions noted GENERAL SKIN EXAM: no rashes or lesions noted Urinary Catheter Management: Cadet: Cath Placed During This Visit: yes, but has since been removed by the nurse Reason for Continuing Indwelling Catheter: Decision to DC Catheter Urinary Catheter Date of Insertion: 04/14/25 Urinary Catheter Time of Insertion: 07:12 Date Urinary Catheter Removed: 04/14/25 Time Urinary Catheter Discontinued: 18:05 Discharge Data Studies Completed and Pending Completed Studies During Hospitalization Category Date Time Status XR knee LT 1-2V [id number] Routine Exams 04/14/25 10:20 Completed Radiology Impressions Knee X-Ray 04/14/25 10:20 Impression: Left knee arthroplasty. Laboratory Results WBC 12.22 10^3/uL (3.29-11.43) H 04/15/25 04:30 RBC 4.51 10^6/uL (3.85-5.65) 04/15/25 04:30 Hgb 11.90 g/dL (11.27-16.99) 04/15/25 04:30 Hct 38.2 % (36-47) 04/15/25 04:30 MCV 84.7 fl (85-98) L 04/15/25 04:30 MCH 26.4 pg (27-33) L 04/15/25 04:30 MCHC 31.2 g/dL (30-55) 04/15/25 04:30 RDW 15.5 % (12.1-15.1) H 04/15/25 04:30 Plt Count 205 10^3/cmm (157-399) 04/15/25 04:30 MPV 11.4 fL (7.4-10.4) H 04/15/25 04:30 Neut % (Auto) 74.3 % 04/15/25 04:30 Lymph % (Auto) 15.9 % 04/15/25 04:30 [place] % (Auto) 8.9 % 04/15/25 04:30 Eos % (Auto) 0.2 % 04/15/25 04:30 Baso % (Auto) 0.2 % 04/15/25 04:30 Neut # (Auto) 9.09 10^3/uL (1.8-7.7) H 04/15/25 04:30 Lymph # (Auto) 1.9 10^3/uL (0.8-4.8) 04/15/25 04:30 [place] # (Auto) 1.1 10^3/uL (0.2-0.9) H 04/15/25 04:30 Eos # (Auto) 0.0 10^3/uL (0.0-0.8) 04/15/25 04:30 Baso # (Auto) 0.0 10^3/uL (0.0-0.1) 04/15/25 04:30 Nucleated RBC % (auto) 0 % 04/15/25 04:30 Nucleated RBCs # 0.0 /100WBC 04/15/25 04:30 Sodium 135 mmol/L (136-145) L 04/15/25 04:30 Potassium 3.5 mmol/L (3.5-5.1) 04/15/25 04:30 Chloride 101 mmol/L (98-107) 04/15/25 04:30 Carbon Dioxide 21 mmol/L (22-29) L 04/15/25 04:30 Anion Gap 16.5 (5-19) 04/15/25 04:30 BUN 16 mg/dL (6-20) 04/15/25 04:30 Creatinine 0.7 mg/dL (0.5-0.9) 04/15/25 04:30 GFR Calculation 88.6 mL/min (90-130) L 04/15/25 04:30 Glucose 140 mg/dL (65-115) H 04/15/25 04:30 Calculated Osmolality 283 mOsm/kg (285-295) L 04/15/25 04:30 Calcium 8.7 mg/dL (8.5-10.5) 04/15/25 04:30 Urine HCG, Qual Negative (Negative) 04/14/25 06:44 Vitals Last Vital Signs Temp 98.9 F 04/15/25 11:59 Pulse 74 04/15/25 11:59 Resp 17 04/15/25 11:59 BP 136/80 04/15/25 11:59 Pulse Ox 96 04/15/25 11:59 O2 Del Method Room Air 04/15/25 11:59 O2 Flow Rate 6 04/14/25 10:29 Discharge Plan Discharge Patient Disposition: Home Condition: Stable Prescriptions: New acetaminophen 500 mg Tablet 1,000 mg PO Q8H 15 Days Qty: 90 0RF aspirin 325 mg Tablet,Delayed Release (Dr/Ec) 325 mg PO DAILY 30 Days Qty: 30 0RF celecoxib 200 mg Capsule 200 mg PO 1XD 30 Days Qty: 30 1RF tramadol 50 mg tablet 50 - 100 mg PO Q6H PRN (Reason: pain) 7 Days Qty: 40 0RF Continued Zyrtec 10 mg capsule 10 mg PO DAILY PRN (Reason: Allergic Symptoms) calcium carbonate [Calcium 500] 500 mg calcium (1,250 mg) tablet 500 mg PO BID magnesium oxide 400 mg magnesium capsule 400 mg PO BID zinc 50 mg tablet 50 mg PO BID cholecalciferol (vitamin D3) 10 mcg (400 unit) capsule 10 mcg PO DAILY albuterol sulfate [ProAir HFA] 90 mcg/actuation HFA aerosol inhaler 2 puff inhalation Q6H PRN (Reason: Respiratory Distress) PreserVision AREDS 2 Plus MV 200 mcg-15 mcg- 5 mg-1 mg capsule 1 cap PO DAILY venlafaxine [Effexor XR] 150 mg capsule,extended release 24hr 150 mg PO DAILY Qty: 90 3RF (DME) medial bilateral broadcast technician braces See Rx Instructions .Route .MEDSUPPLY Qty: 1 0RF Rx Instructions: As directed topiramate [Topamax] 100 mg tablet 100 mg PO BEDTIME cyclobenzaprine 10 mg tablet 10 mg PO DAILY PRN (Reason: muscle spasms) Rx Instructions: TAKE ONE TABLET BY MOUTH DAILY NEEDED FOR MUSCLE SPASMS for 30 DAYS lovastatin 40 mg tablet 40 mg PO DAILY Rx Instructions: TAKE ONE TABLET BY MOUTH EVERY DAY amlodipine 5 mg tablet 5 mg PO DAILY Rx Instructions: TAKE ONE TABLET BY MOUTH DAILY pantoprazole 40 mg tablet,delayed release (DR/EC) 40 mg PO DAILY Rx Instructions: TAKE ONE TABLET BY MOUTH DAILY propranolol 20 mg tablet 20 mg PO BID Rx Instructions: TAKE ONE TABLET BY MOUTH TWICE DAILY fluticasone propionate 50 mcg/actuation spray,suspension 1 spray intranasal DAILY Rx Instructions: USE ONE SPRAY in each nostril DAILY Held acetaminophen 500 mg Tablet 500 mg PO Q6H PRN (Reason: Headache) Hold Instructions: Scheduled Tylenol meloxicam 15 mg tablet 15 mg PO DAILY Hold Instructions: Use Celebrex until it is gone then resume meloxicam Rx Instructions: TAKE ONE TABLET BY MOUTH DAILY Discharge Orders: Discharge Order (Routine); Ordered 04/15/25 Ordered By: Sydney Piña Other Ambulatory Orders: Physical Therapy Eval and Treat Outpatient (Order) Timeframe: 3 Days Facility: [facility] - Location: Physical Therapy Ordered By: Sydney Piña Referrals: [facility] Outpatient Therapy [Outside] - 04/21/25 11:00 am Referral Note: Follow up at the [facility] Sydney Piña MD [Physician, Orthopedics] - 04/29/25 8:30 am Discharge Diet: Advance as tolerated and Usual diet Discharge Activity: Increase activity as tolerated, Limit activity as instructed, Use walker/crutches as instructed and As per PT/OT instructions Patient Instructions: Acetaminophen (By mouth), Aspirin (By mouth), Tramadol (By mouth), Celecoxib (By mouth), Acute Wound Care (DC), Total Knee Replacement (DC), Opioid Safety, Post Anesthesia Care Activity Restrictions/Additional Instructions: Ice and elevation to left lower extremity. You may shower, and get your knee wet, as long as the dressing is in place. If the dressing comes off or begins to leak, you may remove it. Keep the area dry and clean. Weightbearing as tolerated. Home health for physical therapy. They will provide gait training, strengthening, and range of motion. Discharge Attestations Time Spent in Discharge Care*: greater than 30 min Specific Discharge Activities: educating patient, educating and/or supporting family/caregiver, documenting/other paperwork and evaluating patient/reviewing data Quality Metrics Clinical Quality Measures [ No reported AMI, CVA or VTE this stay] Coding Level of Care Code Acute Code for [facility] Fwd Diagnoses Primary osteoarthritis of left knee M17.12 Osteoarthritis type: primary Status post total left knee replacement not using cement Z96.652
[2025-04-15 15:30] VITALS: BP 136/80; PULSE 74; RESP 18; TEMP 37.2; O2SAT 96
== END 2025-04-15 15:35 | disposition home or self-care (01) ==
LOC: MEDSURG 10:48
PROVIDERS: Anesthesiology; Admitting Provider Specialist; PCP Nurse Practitioner Family; Visit Provider Specialist
PROC: 8E0Y0CZ Robotic Assisted Procedure of Lower Extremity, Open Approach (ICD-10-PCS; CPT 27447; principal; 2025-04-14 07:00)
DX: M17.12 Unilateral primary osteoarthritis, left knee (principal); K21.9 Gastro-esophageal reflux disease without esophagitis; J45.909 Unspecified asthma, uncomplicated; I10 Essential (primary) hypertension; I73.9 Peripheral vascular disease, unspecified; E78.5 Hyperlipidemia, unspecified; E66.01 Morbid (severe) obesity due to excess calories; Z68.39 Body mass index [BMI] 39.0-39.9, adult; Z87.891 Personal history of nicotine dependence
CPT/HCPCS: 27447; 20985; 51702; 73560; 80048; 81025; 85025; 97110; 97116; 97161; 97530; A4216; C1776; G0378; J0131; J0666; J0690; J1100; J2250; J2405; J2704; J3010; J3370; J3490; J7030; J9999

== ENCOUNTER 2025-05-03 05:00 | Outpatient (RCR) | payer OTHER, MEDICAID, SELFPAY | END 2025-06-02 23:59 | disposition home or self-care (01) | LOC: WPT 05:00 | PROVIDERS: PCP Nurse Practitioner Family; Visit Provider Specialist | DX: M17.12 Unilateral primary osteoarthritis, left knee (principal) | CPT/HCPCS: 97110; 97112; 97116; 97530 ==

== ENCOUNTER → 2025-05-30 12:36 | Outpatient (BNVA) | payer OTHER, MEDICAID, SELFPAY | PROVIDERS: PCP Nurse Practitioner Family; Visit Provider Nurse Practitioner | DX: Z96.652 Presence of left artificial knee joint (principal) | CPT/HCPCS: 73560; 73565 ==

== ENCOUNTER 2025-06-03 05:00 | Outpatient (RCR) | payer OTHER, MEDICAID, SELFPAY | END 2025-07-03 23:59 | disposition home or self-care (01) | LOC: WPT 05:00 | PROVIDERS: PCP Nurse Practitioner Family; Visit Provider Specialist | DX: M17.12 Unilateral primary osteoarthritis, left knee (principal) | CPT/HCPCS: 97110; 97112; 97530 ==

== ENCOUNTER 2025-07-04 05:00 | Outpatient (RCR) | payer OTHER, MEDICAID, SELFPAY | END 2025-08-02 23:59 | disposition home or self-care (01) | LOC: WPT 05:00 | PROVIDERS: PCP Nurse Practitioner Family; Visit Provider Specialist | DX: M17.12 Unilateral primary osteoarthritis, left knee (principal) | CPT/HCPCS: 97110; 97112; 97116; 97530 ==

== ENCOUNTER 2025-09-13 13:58 | Outpatient (CLI) | payer OTHER, MEDICAID, SELFPAY ==
--- NOTE | 2025-09-13 14:09 | US_ITS ---
WS: [id number] Exam: US breast RT limited* [id number] Date/Time of Exam: 09/13/2025 2:57 PM Reason For Exam: ABNORMAL MAMMOGRAM Regional ultrasound of the anterior RIGHT breast at about the 9 o'clock position is performed. An ovoid shaped cyst is noted at the 9 o'clock position about 2 cm from the nipple. This measures 6 x 3 x 4 mm. No suspicious solid mass or nodule identified in this region. BI-RADS Category 2. Recommendations: Continue yearly screening mammography.
--- NOTE | 2025-09-13 14:30 | MM_ITS ---
WS: [email or web address] VIEWS: MLO, CC, and ML views RIGHT breast only. 3D digital tomosynthesis is also included in this exam. Comparison made with prior exam of 04/28/2024.. Findings: There are scattered areas of fibroglandular density. A persistent 8 mm nodular density identified in the anterior lateral RIGHT breast on additional views and tomographic views. No architectural distortion or suspicious calcification identified. Regional ultrasound of this area would be indicated for further work-up. MM/MM diag RT tomosynthesis [id number] Impression: BI-RADS: 0 - Incomplete: Need additional imaging evaluation FOLLOW-UP: See Report This mammogram was also analyzed by the Computer Aided Detection System R2 [employer] Equipment Mechanic Supervisor.
== END 2025-09-13 13:59 | disposition home or self-care (01) ==
LOC: RAD 13:59
PROVIDERS: PCP Nurse Practitioner Family; Visit Provider Nurse Practitioner Family
DX: R92.8 Other abnormal and inconclusive findings on diagnostic imaging of breast (principal); R92.321 Mammographic fibroglandular density, right breast; N60.01 Solitary cyst of right breast
CPT/HCPCS: 76642; 77061; G0279